=== PATIENT | female | born 1975 | race Caucasian/White ===

== ENCOUNTER 2018-02-18 22:03 | Emergency (ER) | payer MEDICAID, OTHER ==
[2018-02-19] MEDS: NORCO 5/325MG TABLET (BULK FOR ED) PO (05:15)
== END 2018-02-19 05:22 | disposition home or self-care (01) ==
LOC: M ED 22:03
DX: K02.9 Dental caries, unspecified (principal); F17.210 Nicotine dependence, cigarettes, uncomplicated
CPT/HCPCS: 99283

== ENCOUNTER → 2018-11-26 | Outpatient (CLI) | payer OTHER ==
[2018-11-26 12:09] LABS: HCG, SERUM QUANTITATIVE < 1.0 MIU/ML
[2018-11-26 12:39] LABS: HCG, SERUM QUALITATIVE NEGATIVE (NEGATIVE)
== END ==
LOC: M LAB 11:17
PROVIDERS: ATTEND Physician Assistant Medical
DX: N91.2 Amenorrhea, unspecified (principal)

== ENCOUNTER → 2020-08-09 | Outpatient (CLI) | payer OTHER ==
[~2020-08-09] MED LIST: ISOVUE-370 76% 100ML VIAL As Ordered ONE
--- NOTE | 2020-08-09 08:31 | REP ---
INDICATION: LOCALIZED SWELLING MASS IN NECK. Anterior neck swelling, left side of midline, dysphagia. The patient stated she was unable to feel it externally. . COMPARISON: Comparison maxillofacial CT study July 27, 2010. Comparison soft tissue neck radiographs June 18, 2009. TECHNIQUE: 75 mL of intravenous Isovue 370 is administered and helical scanning is acquired. 3 mm axial images re-formatted. Coronal and sagittal MPR images are provided. FINDINGS: Parotid and submandibular glands are normal and symmetric. No intraorbital abnormality is appreciated. There is mucosal thickening affecting the ethmoid air cells bilaterally. There is mild mucosal thickening in the left-sided sphenoid sinus. Mild mucosal thickening is seen in the frontal sinuses. There is mucosal thickening in the right maxillary sinus. Visualized intracranial structures are unremarkable. The thyroid lobes are normal and symmetric. There is no evidence of cystic lesion. Tonsillar and peritonsillar soft tissues are unremarkable. There are scattered normal sized left anterior cervical lymph nodes adjacent to the submandibular gland. There are 1 or 2 on the right as well. There are 2 small normal-sized submental lymph nodes on the left, the largest of these measures 7 by 7 mm. There is no definite adenopathy. No supraclavicular adenopathy is seen. The lung apices are clear. No bony destructive lesion is appreciated. No vascular abnormality is noted. IMPRESSION: Poly sinusitis mucosal changes. scattered normal-sized cervical lymph nodes. No definite adenopathy mass or cyst seen. <Electronically signed by [employer] > 08/09/20 [id number]
== END ==
LOC: M RAD 07:58
PROVIDERS: ATTEND Physician Assistant Medical
DX: R22.1 Localized swelling, mass and lump, neck (principal)
CPT/HCPCS: 70491; Q9967

== ENCOUNTER → 2020-12-15 | Outpatient (CLI) | payer OTHER ==
[~2020-12-15] MED LIST changes: -ISOVUE-370 76% 100ML VIAL As Ordered ONE; +PROHANCE 279.3MG/ML 15ML VIAL ONE
== END ==
LOC: M PLAIMG 09:53
PROVIDERS: ATTEND Otolaryngology
DX: H90.3 Sensorineural hearing loss, bilateral (principal)

== ENCOUNTER → 2021-01-08 | Outpatient (CLI) | payer OTHER ==
[~2021-01-08] MED LIST changes: +OMEP-218 PO; -PROHANCE 279.3MG/ML 15ML VIAL ONE
== END ==
LOC: M LABSMTC 10:56
PROVIDERS: ATTEND Anesthesiology
DX: Z01.812 Encounter for preprocedural laboratory examination (principal); Z11.52 Encounter for screening for COVID-19

== ENCOUNTER 2021-01-13 08:58 | Day surgery (SDC) | payer OTHER ==
[~2021-01-13] VITALS: Ht 162.6 cm; Wt 73.9 kg
[~2021-01-13 08:58] MED LIST changes: +LR 1,000 ML IV ONE; +dexameTHASONE 4 MG/ML 1ML VIAL (J1100 PER 1MG) IV ONE
[2021-01-13] MEDS ORDERED: LIDOCAINE 2% 100MG/5ML SDV (FOR ANES.) As Ordered ONE (11:22)
[2021-01-13] MEDS ORDERED: ONDANSETRON 4MG/2ML VIAL As Ordered ONE (11:22)
[2021-01-13] MEDS ORDERED: ROCURONIUM BROMIDE 50 MG/5 ML VIAL As Ordered ONE (11:22)
[2021-01-13] MEDS ORDERED: dexameTHASONE 4 MG/ML 1ML VIAL (J1100 PER 1MG) As Ordered ONE (11:22)
[2021-01-13] MEDS ORDERED: propofoL 200 MG/20 ML VIAL As Ordered ONE (11:22)
[2021-01-13] MEDS ORDERED: SUGAMMADEX SODIUM 500 MG/5 ML VIAL (BRIDION) As Ordered ONE (11:22)
[2021-01-13] MEDS ORDERED: ACETAMINOPHEN 1000MG 100ML IV BTL (OFIRMEV) (J0131 PER 10MG) As Ordered ONE (11:22)
[2021-01-13] MEDS ORDERED: fentaNYL 100 MCG/2 ML INJECTION (J3010) As Ordered ONE (11:24)
[2021-01-13] MEDS ORDERED: MIDAZOLAM INJ 2MG/2ML VIAL (J2250 PER 1MG) As Ordered ONE (11:24)
[2021-01-13] MEDS ORDERED: METHYLENE BLUE 0.5% (5MG/ML) 10 ML AMP (PROVAYBLUE) As Ordered ONE (11:54)
[2021-01-13] MEDS ORDERED: LIDOCAINE W/EPINEPHRINE 1% 20ML VIAL As Ordered ONE (11:54)
[2021-01-13] MEDS ORDERED: OXYMETAZOLINE 0.05% NASAL SPRAY (AFRIN) As Ordered ONE (11:54)
[2021-01-13] MEDS ORDERED: fentaNYL 100 MCG/2 ML INJECTION (J3010) IV PRN (13:10)
[2021-01-13] MEDS ORDERED: HYDROMORPHONE HCL 0.5 MG/ 0.5 ML SYRINGE (J1170 PER 1) IV PRN (13:10)
[2021-01-13] MEDS ORDERED: LR 1,000 ML IV SCH ×2 (13:10)
[2021-01-13] MEDS ORDERED: ONDANSETRON 4MG/2ML VIAL IV PRN (13:10)
[2021-01-13] MEDS: oxyCODONE 5MG TAB PO PRN ×2 (13:29→14:39)
[2021-01-13 14:29] VITALS: BP 116/74
--- NOTE | 2021-02-01 17:24 | RO ---
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 PROCEDURE PERFORMED: Direct suspension microlaryngoscopy with excision of cystic mass, left posterior vocal cord near the left arytenoid. SURGEON: Osmin Mcmullen MD [employer] CUSTOMIZER: ANESTHESIA: General CLINICAL PREAMBLE: This 45-year-old woman presented to the office with history of chronic dysphonia. Flexible laryngoscopy revealed a cystic mass on the posterior 1/3 of the left vocal cord near the left arytenoid. Management options including surgery listed above have been discussed. The patient understood and consented to the procedure. OR NARRATION: The patient was identified in preholding and brought to the operating room in stable condition. In supine position on the operating table, the patient received general anesthesia followed by orotracheal intubation without incident. The patient was prepped and draped in the usual fashion for the procedure. Bimanual palpation of the oral cavity, oral tongue, base of tongue, lateral posterior pharyngeal wall showed no evidence of dysplastic lesions. Inspection of the mucosa of the oral cavity, oropharynx, supraglottis, piriform sinuses and posterior pharyngeal wall showed no evidence of mucosal lesions. Dedo-Pilling laryngoscope was then suspended on the Schmidt stand to visualize the glottis. A round, smooth mass was noted on the posterior 1/3 of the left vocal cord adjacent to the left arytenoid area. No other lesion was noted on the contralateral vocal cords. The base of the left vocal cord mass lesion was infiltrated with 1% lidocaine with 1:100,000 epinephrine at the base of the lesion. Using the microlaryngeal scissors, the mass lesion was successfully excised from the left vocal cord. Hemostasis was achieved by placing cotton-lined pledgets soaked in vasoconstrictive agents. At the end of the procedure, sponge and instrument counts were correct. No complications were encountered. Estimated blood loss was less 1 mL. General anesthesia was reversed and the patient was extubated and brought to the recovery room in stable condition.
== END 2021-01-13 14:46 | disposition home or self-care (01) ==
LOC: M SDC 08:58
PROVIDERS: ATTEND Otolaryngology
DX: J38.7 Other diseases of larynx (principal); R49.0 Dysphonia; K21.9 Gastro-esophageal reflux disease without esophagitis; R06.83 Snoring; F17.210 Nicotine dependence, cigarettes, uncomplicated; Z79.899 Other long term (current) drug therapy; J30.1 Allergic rhinitis due to pollen
CPT/HCPCS: 31540; 88305; J0131; J2250; J2405; J3010; Q9968

== ENCOUNTER → 2021-02-01 | Outpatient (REF) | payer OTHER ==
[~2021-02-01] MED LIST changes: -LR 1,000 ML IV ONE; -dexameTHASONE 4 MG/ML 1ML VIAL (J1100 PER 1MG) IV ONE
== END ==
LOC: M SFHCCLAY 13:30
PROVIDERS: ATTEND Family Medicine
DX: Z02.83 Encounter for blood-alcohol and blood-drug test (principal)

== ENCOUNTER → 2021-04-21 | Outpatient (CLI) | payer OTHER ==
[~2021-04-21] MED LIST changes: +E-Z-GAS II EFFERVESCENT PACKET (SODIUM BICARB./CITRIC ACID/SIMETHICONE) As Ordered ONE; +E-Z-HD 98% w/w 340GM SUSP BTL As Ordered ONE; +E-Z-PAQUE 96% w/w SUSP 176GM BTL As Ordered ONE
--- NOTE | 2021-04-21 17:01 | REP ---
INDICATION: DYSPHAGIA. COMPARISON: None TECHNIQUE: This procedure was performed by [facility], under the direct supervision of Dr To. Images were reviewed with Dr To prior to dictation. Liquid barium and gas producing crystals were given in the erect position, as well as liquid barium in the prone oblique position in order to perform a double contrast esophagram examination. FINDINGS: A single view PA chest x-ray is submitted as a water quality assistant film. The superior mediastinal structures are midline. The heart size is within normal limits. The lungs are clear. The oral and pharyngeal stages of deglutition were unremarkable. Esophageal transport is prompt and efficient and there is no evidence of esophagitis or stricture. There is a small Schatzki's B ring in the distal portion of the esophagus. There is no evidence of a hiatal hernia. Gastroesophageal reflux was not observed on this examination. IMPRESSION: There is a small Schatzki's B ring in the distal portion of the esophagus. Otherwise unremarkable esophagram. 0.7 minutes of fluoroscopy time was utilized for this procedure. Some fluoroscopic images are performed with last image hold technology. These images require no additional radiation. <Electronically signed by [facility] > 04/21/21 [id number] <Electronically signed by Slim To > 04/21/21 [id number]
== END ==
LOC: M RAD 09:27
PROVIDERS: ATTEND Otolaryngology
DX: R13.10 Dysphagia, unspecified (principal)

== ENCOUNTER → 2021-06-16 | Outpatient (CLI) | payer OTHER ==
[~2021-06-16] MED LIST changes: -E-Z-GAS II EFFERVESCENT PACKET (SODIUM BICARB./CITRIC ACID/SIMETHICONE) As Ordered ONE; -E-Z-HD 98% w/w 340GM SUSP BTL As Ordered ONE; -E-Z-PAQUE 96% w/w SUSP 176GM BTL As Ordered ONE
== END ==
LOC: M LABSMTC 09:39
PROVIDERS: ATTEND Anesthesiology
DX: Z01.818 Encounter for other preprocedural examination (principal); Z11.52 Encounter for screening for COVID-19

== ENCOUNTER 2021-06-21 10:15 | Day surgery (SDC) | payer OTHER ==
[~2021-06-21] VITALS: Ht 162.6 cm; Wt 68.0 kg
[~2021-06-21 10:15] MED LIST changes: +NS 1,000 ML IV ONE; +OMEP-173 PO; -OMEP-218 PO
[2021-06-21] MEDS ORDERED: fentaNYL 100 MCG/2 ML INJECTION (J3010) As Ordered ONE (12:00)
[2021-06-21] MEDS ORDERED: propofoL 200 MG/20 ML VIAL As Ordered ONE (12:00)
[2021-06-21 13:17] VITALS: BP 114/73
== END 2021-06-21 13:26 | disposition home or self-care (01) ==
LOC: M OPP 10:15
PROVIDERS: ATTEND Internal Medicine Gastroenterology
DX: K22.89 Other specified disease of esophagus (principal); K29.70 Gastritis, unspecified, without bleeding; K31.89 Other diseases of stomach and duodenum; R13.10 Dysphagia, unspecified; F17.210 Nicotine dependence, cigarettes, uncomplicated
CPT/HCPCS: 43239; 88305; J3010

== ENCOUNTER 2022-03-19 08:15 | Emergency (ER) | payer OTHER ==
[~2022-03-19 08:15] MED LIST changes: -NS 1,000 ML IV ONE
[2022-03-19] MEDS ORDERED: FLUT22IN INH (08:27)
[2022-03-19] MEDS ORDERED: NS 1,000 ML IV ONE (09:30)
[2022-03-19] MEDS ORDERED: KETOROLAC 30 MG/ML 1ML VIAL IV ONE (09:30)
[2022-03-19] MEDS ORDERED: AMPICILLIN SOD/SULBACTAM SOD 3 GM in D5W MINI-BAG PLUS 100 ML IV ONE (09:30)
[2022-03-19 10:02] LABS: BASO # 0.1 10^3/uL (0.0-0.2); BASO % 0.6 % (0.0-1.0); EOS # 0.7 10^3/uL (0.0-0.5); EOS % 7.4 % (0.0-3.0); HEMATOCRIT 41.2 % (36.0-47.0); HEMOGLOBIN 13.6 g/dl (12.0-15.5); LYMPH # 2.2 10^3/uL (1.5-5.0); LYMPH % 22.7 % (24.0-44.0); MEAN CORPUSCULAR HEMOGLOBIN 29.7 pg (27.0-33.0); MONO # 0.6 10^3/uL (0.0-0.8); MONO % 6.5 % (2.0-8.0); NEUTROPHILS # 6.2 10^3/uL (1.5-8.5); NEUTROPHILS % 62.5 % (36.0-66.0); PLATELET COUNT, AUTOMATED 269 10^3/uL (150-450); RED BLOOD COUNT 4.58 10^6/uL (4.00-5.40); WHITE BLOOD COUNT 9.9 10^3/uL (4.0-10.0)
[2022-03-19] MEDS ORDERED: KETO10TAB PO (11:38)
[2022-03-19] MEDS ORDERED: AMOX875T2 PO (11:38)
[2022-03-19 11:49] VITALS: BP 127/72
== END 2022-03-19 11:50 | disposition home or self-care (01) ==
LOC: M ED 08:15
DX: K04.7 Periapical abscess without sinus (principal); K08.89 Other specified disorders of teeth and supporting structures; F17.200 Nicotine dependence, unspecified, uncomplicated; K21.9 Gastro-esophageal reflux disease without esophagitis; Z79.899 Other long term (current) drug therapy
CPT/HCPCS: 84702; 85025; 86140; 96361; 96365; 96375; 99283; J0295; J1885

== ENCOUNTER → 2022-07-19 | Outpatient (CLI) | payer OTHER ==
[~2022-07-19] MED LIST changes: +AMOX875T2 PO; +FLUT22IN INH; +KETO10TAB PO
== END ==
LOC: M LABSMTC 11:17
PROVIDERS: ATTEND Anesthesiology
DX: Z01.818 Encounter for other preprocedural examination (principal); Z11.52 Encounter for screening for COVID-19

== ENCOUNTER 2022-07-24 14:04 | Day surgery (SDC) | payer OTHER ==
[~2022-07-24] VITALS: Ht 162.6 cm; Wt 80.7 kg
[~2022-07-24 14:04] MED LIST changes: +NS 1,000 ML IV ONE
[2022-07-24] MEDS ORDERED: LIDOCAINE 2% 100MG/5ML SDV (FOR ANES.) As Ordered ONE (15:48)
[2022-07-24] MEDS ORDERED: propofoL 200 MG/20 ML VIAL As Ordered ONE (15:48)
[2022-07-24] MEDS ORDERED: fentaNYL 100 MCG/2 ML INJECTION As Ordered ONE (15:49)
[2022-07-24 17:15] VITALS: BP 119/56
== END 2022-07-24 17:19 | disposition home or self-care (01) ==
LOC: M OPP 14:04
PROVIDERS: ATTEND Internal Medicine Gastroenterology
DX: K20.0 Eosinophilic esophagitis (principal); K22.89 Other specified disease of esophagus; K29.70 Gastritis, unspecified, without bleeding; Z79.51 Long term (current) use of inhaled steroids; F17.200 Nicotine dependence, unspecified, uncomplicated; Z87.09 Personal history of other diseases of the respiratory system
CPT/HCPCS: 43239; 88305; J3010

== ENCOUNTER 2022-09-10 21:33 | Emergency (ER) | payer OTHER ==
[~2022-09-10] VITALS: Ht 157.5 cm; Wt 77.0 kg
[~2022-09-10 21:33] MED LIST changes: -NS 1,000 ML IV ONE
[2022-09-11 00:51] LABS: BASO # 0.1 10^3/uL (0.0-0.2); BASO % 0.4 % (0.0-1.0); EOS # 0.4 10^3/uL (0.0-0.5); EOS % 3.3 % (0.0-3.0); HEMATOCRIT 39.9 % (36.0-47.0); LYMPH % 26.7 % (24.0-44.0); MEAN CORPUSCULAR HEMOGLOBIN 31.2 pg (27.0-33.0); MEAN CORPUSCULAR HGB CONC 35.1 g/dl (32.0-36.5); MEAN CORPUSCULAR VOLUME 88.9 fl (80.0-96.0); MONO % 8.9 % (2.0-8.0); NEUTROPHILS # 6.7 10^3/uL (1.5-8.5); NEUTROPHILS % 60.4 % (36.0-66.0); PLATELET COUNT, AUTOMATED 250 10^3/uL (150-450); RED BLOOD COUNT 4.49 10^6/uL (4.00-5.40); WHITE BLOOD COUNT 11.2 10^3/uL (4.0-10.0)
[2022-09-11 01:21] LABS: ALBUMIN 3.9 G/DL (3.2-5.2); ALKALINE PHOSPHATASE 62 U/L (46-116); ALT/SGPT 37 U/L (7.0-40); AST/SGOT 24 U/L (<34); BILIRUBIN,TOTAL 0.5 MG/DL (0.3-1.2); BLOOD UREA NITROGEN 8 MG/DL (9-23); CALCIUM LEVEL 8.7 MG/DL (8.5-10.1); CARBON DIOXIDE LEVEL 28 MMOL/L (20-31); CHLORIDE LEVEL 101 MMOL/L (98-107); CREATININE FOR GFR 0.53 MG/DL (0.55-1.30); GLOMERULAR FILTRATION RATE > 60.0 (>58); GLUCOSE, FASTING 93 MG/DL (60-100); POTASSIUM SERUM 3.2 MMOL/L (3.5-5.1); SODIUM LEVEL 138 MMOL/L (136-145); TOTAL PROTEIN 7.4 G/DL (5.7-8.2)
[2022-09-11] MEDS ORDERED: AZIT500T5 PO (01:22)
[2022-09-11] MEDS ORDERED: FLUT22IN INH (01:23)
[2022-09-11] MEDS ORDERED: POTASSIUM CHLORIDE 10MEQ SR TABLET PO ONE (01:30)
[2022-09-11] MEDS ORDERED: LIDOCAINE VISCOUS 2% SOLN 15ML UDC SS ONE (01:30)
[2022-09-11] MEDS ORDERED: LIDOCAINE VISCOUS 2% SOLN 15ML UDC SSP ONE (02:00)
[2022-09-11 02:06] VITALS: BP 122/62
== END 2022-09-11 02:08 | disposition home or self-care (01) ==
LOC: M ED 21:33
DX: J02.9 Acute pharyngitis, unspecified (principal); J01.90 Acute sinusitis, unspecified; R50.9 Fever, unspecified; Z90.49 Acquired absence of other specified parts of digestive tract; J30.2 Other seasonal allergic rhinitis

== ENCOUNTER → 2022-10-10 | Outpatient (REF) | payer OTHER ==
[~2022-10-10] MED LIST changes: +AZIT500T5 PO
[2022-10-10 17:54] LABS: HEMOGLOBIN A1c 5.6 % (4.0-6.0)
[2022-10-10 18:12] LABS: ALBUMIN 3.9 G/DL (3.2-5.2); ALKALINE PHOSPHATASE 60 U/L (46-116); ALT/SGPT 51 U/L (7.0-40); AST/SGOT 23 U/L (<34); BILIRUBIN,TOTAL 0.5 MG/DL (0.3-1.2); BLOOD UREA NITROGEN 9 MG/DL (9-23); CALCIUM LEVEL 8.8 MG/DL (8.5-10.1); CARBON DIOXIDE LEVEL 28 MMOL/L (20-31); CHLORIDE LEVEL 106 MMOL/L (98-107); CHOLESTEROL LEVEL 161 MG/DL (<200); CREATININE FOR GFR 0.63 MG/DL (0.55-1.30); GLOMERULAR FILTRATION RATE > 60.0 (>58); GLUCOSE, FASTING 106 MG/DL (60-100); SODIUM LEVEL 140 MMOL/L (136-145); TOTAL PROTEIN 7.3 G/DL (5.7-8.2); TRIGLYCERIDES LEVEL 110 MG/DL (<150)
[2022-10-10 18:14] LABS: FREE T4 0.97 NG/DL (0.89-1.76)
[2022-10-10 18:15] LABS: THYROID STIMULATING HORMONE 1.337 uIU/ML (0.55-4.78)
== END ==
LOC: M SFHCCLAY 10:02
PROVIDERS: ATTEND Nurse Practitioner Family
DX: Z13.220 Encounter for screening for lipoid disorders (principal); Z83.49 Family history of other endocrine, nutritional and metabolic diseases; Z83.3 Family history of diabetes mellitus; Z00.00 Encounter for general adult medical examination without abnormal findings; K20.0 Eosinophilic esophagitis

== ENCOUNTER 2023-07-16 08:03 | Day surgery (SDC) | payer OTHER ==
[~2023-07-16] VITALS: Ht 160 cm; Wt 75.3 kg
[~2023-07-16 08:03] MED LIST changes: +FLOVENT INH
[2023-07-16] MEDS ORDERED: LIDOCAINE 2% 100MG/5ML SDV (FOR ANES.) As Ordered ONE (08:35)
[2023-07-16] MEDS ORDERED: propofoL 200 MG/20 ML VIAL As Ordered ONE (08:35)
[2023-07-16] MEDS: NS 1,000 ML IV ONE (08:48)
[2023-07-16] MEDS ORDERED: fentaNYL 100 MCG/2 ML INJECTION As Ordered ONE (09:43)
[2023-07-16 10:48] VITALS: BP 156/69; TEMP 96.8; O2SAT 96
== END 2023-07-16 10:47 | disposition home or self-care (01) ==
LOC: M OPP 08:03
PROVIDERS: ATTEND Internal Medicine Gastroenterology
DX: Z12.11 Encounter for screening for malignant neoplasm of colon (principal); K63.5 Polyp of colon; K64.4 Residual hemorrhoidal skin tags; K64.8 Other hemorrhoids; K20.0 Eosinophilic esophagitis; K22.2 Esophageal obstruction; K29.70 Gastritis, unspecified, without bleeding; F17.200 Nicotine dependence, unspecified, uncomplicated; Z79.82 Long term (current) use of aspirin; Z79.899 Other long term (current) drug therapy
CPT/HCPCS: 43239; 43249; 45385; 88305; J3010

== ENCOUNTER 2024-05-16 09:45 | Emergency (ER) | payer OTHER ==
[~2024-05-16] VITALS: Ht 160 cm; Wt 78.8 kg
[2024-05-16 09:50] VITALS: BP 136/75; TEMP 96.5; O2SAT 98
[2024-05-16] MEDS: METHOCARBAMOL 1,000 MG/10 ML VIAL IM ONE (10:53)
[2024-05-16] MEDS: KETOROLAC 60MG 2ML VIAL IM ONE (10:53)
[2024-05-16] MEDS ORDERED: METH-1164 PO (11:35)
== END 2024-05-16 12:59 | disposition home or self-care (01) ==
LOC: M ED 09:45
DX: M54.42 Lumbago with sciatica, left side (principal); F17.210 Nicotine dependence, cigarettes, uncomplicated; Z91.09 Other allergy status, other than to drugs and biological substances; Z79.899 Other long term (current) drug therapy
CPT/HCPCS: 72110; 96372; 99283; J1885; J2800

== ENCOUNTER → 2025-04-10 | Outpatient (CLI) | payer OTHER ==
[~2025-04-10] MED LIST changes: +METH-1164 PO; +PRED20TA PO; +PROHANCE 279.3MG/ML 15ML VIAL ONE
== END ==
LOC: M PLAIMG 13:48
PROVIDERS: ATTEND Physician Assistant
DX: M47.26 Other spondylosis with radiculopathy, lumbar region (principal)
CPT/HCPCS: 72158; A9579